=== PATIENT | female | born 1965 | race Caucasian/White ===

== ENCOUNTER 2021-06-14 06:44 | Emergency (ER) | payer OTHER ==
[~2021-06-14] VITALS: Ht 152.4 cm; Wt 48.5 kg
[~2021-06-14 06:44] MED LIST: ACID CONTROL75 MG PO; AMOX TR-K CLV1 EAC4 PO; HYDROCODON-ACE1 EAC7 PO; IBUPROFEN 800800 M1 PO; LIDODERM 5%1 PATC1 TOP; XANAX 0.25 MG0.25 MG PO; [UNRECOGNIZED DRUG - OTHER]
[2021-06-14] MEDS ORDERED: OTHER (07:12)
[2021-06-14 07:42] LABS: ABSOLUTE EOSINOPHILS 0.2 thou/uL (0.0-0.7); ABSOLUTE LYMPHOCYTES 2.1 thou/uL (0.8-5.3); ABSOLUTE MONOCYTES 0.8 thou/uL (0.0-1.2); ABSOLUTE NEUTROPHILS 7.4 thou/uL (1.6-8.1); BASOPHILS 0.4 %; EOSINOPHILS 1.8 %; HEMATOCRIT 38.7 % (37.0-47.0); HEMOGLOBIN 12.6 gm/dL (12.0-15.0); LYMPHOCYTES 20.3 %; MCH 31.1 pg (26.0-34.0); MCHC 32.6 g/dL (28.0-37.0); MCV 95.5 fL (80.0-100.0); MONOCYTES 7.2 %; MPV 8.9 fl. (7.2-11.1); NUCLEATED RBCS 0 /100WBC; PLATELET COUNT* 305 thou/uL (150-400); POLYS 70.3 %; RBC 4.05 mil/uL (4.20-5.00); WBC 10.5 thou/uL (4.0-11.0)
[2021-06-14 07:57] LABS: CALCIUM 8.6 mg/dL (8.5-10.1); CREATININE 0.6 mg/dL (0.6-1.3); POTASSIUM 4.1 mmol/L (3.5-5.1)
[2021-06-14 08:01] LABS: ALBUMIN 3.7 g/dL (3.4-5.0); TOTAL BILIRUBIN 0.5 mg/dL (<0.1-1.0); TOTAL PROTEIN 6.7 g/dL (6.4-8.2)
[2021-06-14 08:02] LABS: URINE BILIRUBIN NEGATIVE (Negative); URINE BLOOD NEGATIVE (Negative); URINE CLARITY CLEAR; URINE COLOR YELLOW; URINE GLUCOSE-RANDOM NEGATIVE (Negative); URINE KETONES NEGATIVE (Negative); URINE LEUKOCYTES-REFLEX NEGATIVE (Negative); URINE NITRITE-REFLEX NEGATIVE (Negative); URINE PROTEIN NEGATIVE (Negative); URINE SPECIFIC GRAVITY 1.015 (1.005-1.030); URINE UROBILINOGEN 0.2 E.U./dl (0.2-1.0)
[2021-06-14] MEDS ORDERED: ZOFRAN ODT4 MG DISSOLVE (09:04)
[2021-06-14] MEDS ORDERED: PERCOCET 5-3251 EACH PO (09:04)
[2021-06-14 09:15] VITALS: BP 97/58
--- NOTE | 2021-06-14 10:03 | EKG ---
[place] [address] ELECTROCARDIOGRAM REPORT Name: JOSE ANGEL MARIANO Room: [facility]#: [id number] Admission: 06/14/21 Attend Phys: Discharge: 06/14/21 Date of : 63 Date of Service: 06/14/2132 Report #: [id number] THIS REPORT FOR: //name// [facility] ED Test Date: 2021-06-14 Test Time: 07:32:24 Pat Name: JOSE ANGEL AMRIANO Department: Room: Gender: Sheet Turner: : 1965 Requested By: Salvatore Worthy Order Number: [id number] MD: Audi Machado Measurements Intervals [place] Rate: 69 P: 71 MS: 125 QRS: 78 QRSD: 79 T: 73 QT: 385 QTc: 413 Interpretive Statements Sinus rhythm No previous ECG available for comparison Electronically Signed On 06-14-2021 10:03:22 CAD INTERN by Audi Machado [email or web address] <ELECTRONICALLY SIGNED> By: Audi Machado MD, [facility] 06/14/21 1003 0732 1 Audi Machado MD, FACC /EPI
== END 2021-06-14 09:15 | disposition home or self-care (01) ==
LOC: M.ERS 06:44
PROVIDERS: Emergency Medicine Emergency Medical Services
DX: R10.11 Right upper quadrant pain (principal); Z87.442 Personal history of urinary calculi; Z79.899 Other long term (current) drug therapy; Z88.5 Allergy status to narcotic agent; Z88.6 Allergy status to analgesic agent; Z88.2 Allergy status to sulfonamides